=== PATIENT | female | born 1980 | race Caucasian/White ===

== ENCOUNTER 2017-04-05 07:36 | Emergency (ER) | payer OTHER ==
[2017-04-05 08:23] LABS: BASOPHIL 0.4 % (0-2); BILIRUBIN NEGATIVE (NEGATIVE); BLOOD NEGATIVE Ery/uL (NEGATIVE); CLARITY CLEAR (CLEAR); COLOR YELLOW (YELLOW); EOSINOPHIL 1.5 % (0-5); GLUCOSE (U) NORMAL (NORMAL); HCT 43.2 % (37.0-47.0); HGB 15.4 g/dl (12.5-16.0); KETONE (U) 1+ (SMALL) mg/dL (NEGATIVE); LEUKOCYTES NEGATIVE Leu/uL (NEGATIVE); LYMPHOCYTE 15.9 % (15-48); MCH 29.1 pg (25.0-31.0); MCHC 35.6 g/dL (32.0-36.0); MCV 81.7 fL (78.0-100.0); MONOCYTE 4.4 % (0-12); MPV 9.3 fL (6.0-9.5); NEUTROPHIL 77.8 % (41-80); NITRITE NEGATIVE (NEGATIVE); PLT 365 K/uL (150-400); PROTEIN NEGATIVE (NEGATIVE); RBC 5.29 M/uL (4.20-5.40); RDW 13.6 % (11.5-14.0); SPECIFIC GRAVITY >=1.030 (1.001-1.030); UROBILINOGEN 0.2 mg/dL (0.2-1.0); WBC 12.6 K/uL (4.0-10.5); pH 5.5 (5.0-9.0)
[2017-04-05 08:44] LABS: ALBUMIN 4.6 g/dL (3.5-5.0); BILIRUBIN - TOTAL 0.4 mg/dL (0.1-1.0); CREATININE 0.5 mg/dL (0.5-1.0); GLOBULIN (CALCULATION) 3.2 g/dL (2.2-4.2); POTASSIUM 3.8 mmol/L (3.5-5.1); TOTAL PROTEIN 7.8 g/dL (6.4-8.3)
== END 2017-04-05 10:38 | disposition home or self-care (01) ==
LOC: FER 07:36
PROVIDERS: Internal Medicine
DX: A08.4 Viral intestinal infection, unspecified (principal); E11.9 Type 2 diabetes mellitus without complications; Z79.84 Long term (current) use of oral hypoglycemic drugs; Z79.4 Long term (current) use of insulin; Z79.899 Other long term (current) drug therapy
CPT/HCPCS: 36415; 74022; 80053; 81003; 83690; 85025; 87339; J1170; J2405

== ENCOUNTER 2020-12-18 17:54 | Inpatient (IN) | payer OTHER ==
[~2020-12-18 17:54] MED LIST: ASPIRIN CHEWABL81 MG PO; ATORVASTATIN CA80 MG PO; BASAGLAR K100 UNIT/1 SC; BRILINTA60 MG PO; COREG 3.125M3.125 MG PO; DESYREL50 MG PO; DILTIAZEM ER180 M1 PO; EFFIENT10 MG PO; FLUOXETINE HCL20 MG PO; GABAPENTIN600 MG PO; HYDROXYZINE HCL50 MG PO; IMDUR 30MG TABL30 MG PO; ISOSORBIDE MONO60 MG PO; JANUMET XR 50-1 EACH PO; LAMOTRIGINE150 MG PO; MIDODRINE HCL10 MG PO; NITROQUIK SL0.4 MG SL; PERCOCET 5-3251 EACH PO; PLAVIX75 MG PO; PRASUGREL HCL10 MG PO; PRILOSEC20 MG PO; PROTONIX 40MG T40 MG PO; TIZANIDINE HCL2 M1 PO; VENTOLIN HFA IN18 GM INH; VITAMIN D32000 UNI2 PO; ZOFRAN4 MG PO
[2020-12-18 19:08] LABS: BASOPHIL 0.9 % (0-2); EOSINOPHIL 2.3 % (0-5); HCT 38.9 % (37.0-47.0); HGB 13.5 g/dl (12.5-16.0); LYMPHOCYTE 32.3 % (15-48); MCH 28.7 pg (25.0-31.0); MCHC 34.7 g/dL (32.0-36.0); MCV 82.8 fL (78.0-100.0); MONOCYTE 5.6 % (0-12); MPV 9.7 fL (6.0-9.5); NEUTROPHIL 58.6 % (41-80); NRBC 0; PLT 344 K/uL (150-400); RDW 12.1 % (11.5-14.0); WBC 11.5 K/uL (4.0-10.5)
[2020-12-18 19:19] LABS: ALBUMIN 3.4 g/dL (3.4-5.0); BILIRUBIN - TOTAL 0.4 mg/dL (0.2-1.0); BUN/CREAT RATIO (CALC) 20.3 RATIO; CREATININE 0.64 mg/dL (0.51-0.95); GLOBULIN (CALCULATION) 3.4 g/dL; POTASSIUM 3.5 mmol/L (3.5-5.1); TOTAL PROTEIN 6.8 g/dL (6.4-8.2)
[2020-12-18 19:27] LABS: INR 1.01 (0.9-1.2); PROTHROMBIN TIME 12.6 SECONDS (11.4-13.6); PTT 26.1 SECONDS (22.2-34.7)
[2020-12-19 02:22] LABS: CORONAVIRUS 2019 SARS-COV-2 NEGATIVE (NEGATIVE); INFLUENZA A NAA NEGATIVE (NEGATIVE)
[2020-12-19] MEDS ORDERED: BRILINTA60 MG PO (02:46)
[2020-12-19] MEDS ORDERED: CARDIZEM CD120 MG PO (02:47)
[2020-12-19] MEDS ORDERED: LIPITOR40 MG PO (02:48)
[2020-12-19] MEDS ORDERED: COREG 3.125M3.125 MG PO (02:48)
[2020-12-19] MEDS ORDERED: ISOSORBIDE MONO60 MG PO (02:49)
[2020-12-19] MEDS ORDERED: FLUOXETINE HCL PO (02:50)
[2020-12-19] MEDS ORDERED: ATARAX25 MG PO (02:50)
[2020-12-19] MEDS ORDERED: NITROQUIK SL0.4 MG SL (02:50)
[2020-12-19] MEDS ORDERED: TRAZODONE 100M100 MG PO (02:51)
[2020-12-19] MEDS ORDERED: CLONAZEPAM0.5 MG PO (02:51)
[2020-12-19] MEDS ORDERED: HYDROCODON-ACE1 EAC1 PO (02:52)
[2020-12-19] MEDS ORDERED: GABAPENTIN600 MG PO (02:52)
[2020-12-19] MEDS ORDERED: VITAMIN D350 MC4 PO (02:53)
[2020-12-19] MEDS ORDERED: TIZANIDINE HCL4 M1 PO (02:54)
[2020-12-19] MEDS ORDERED: JANUMET XR 50-1 EACH PO (02:54)
[2020-12-19] MEDS ORDERED: COQ1050 MG PO (02:55)
[2020-12-19] MEDS ORDERED: BASAGLAR K100 UNIT/1 IJ (02:55)
[2020-12-19 04:17] LABS: INR 1.04 (0.9-1.2); PROTHROMBIN TIME 12.9 SECONDS (11.4-13.6)
[2020-12-19 04:32] LABS: ALBUMIN 3.5 g/dL (3.4-5.0); BILIRUBIN - TOTAL 0.4 mg/dL (0.2-1.0); BUN/CREAT RATIO (CALC) 22.8 RATIO; CREATININE 0.57 mg/dL (0.51-0.95); GLOBULIN (CALCULATION) 3.6 g/dL; PHOSPHORUS 4.1 mg/dL (2.6-4.7); POTASSIUM 3.3 mmol/L (3.5-5.1); TOTAL PROTEIN 7.1 g/dL (6.4-8.2)
--- NOTE | 2020-12-19 04:56 | NUR ---
HEPATOLOGIST DR SUMMERS NOTIFIED OF PT INCREASED TROPONIN, STATED SHE WILL ORDER A ONE TIME DOSE OF LOVENOX UNTIL THE DELIVERY MGR SEES THE PT. NO CHEST PAIN OR ANYTHING AT THIS TIME. WILL CONTINUE TO MONITOR
[2020-12-20 04:07] LABS: HCT 36.5 % (37.0-47.0); HGB 12.6 g/dl (12.5-16.0); LYMPHOCYTE 49.5 % (15-48); MCH 28.8 pg (25.0-31.0); MCHC 34.5 g/dL (32.0-36.0); MCV 83.5 fL (78.0-100.0); MONOCYTE 6.5 % (0-12); MPV 9.6 fL (6.0-9.5); NEUTROPHIL 38.7 % (41-80); NRBC 0; PLT 228 K/uL (150-400); RBC 4.37 M/uL (4.20-5.40); RDW 12.3 % (11.5-14.0); WBC 6.7 K/uL (4.0-10.5)
[2020-12-20 04:42] LABS: BUN/CREAT RATIO (CALC) 23.4 RATIO; CREATININE 0.64 mg/dL (0.51-0.95); MAGNESIUM 1.9 mg/dL (1.8-2.4); PHOSPHORUS 3.3 mg/dL (2.6-4.7)
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
--- NOTE | 2020-12-21 05:37 | NUR ---
PT HR WENT UP TO 175 AND CAME BACK DOWN, CALLED TO [employer] RECORDS CLERK AND NO NEW ORDERS WERE GIVEN. PT STATED SHE HAD NOT GOTTEN OUT OF BED BUT HAD JUST GOTTEN HER BLOOD DRAWN. NO CHEST PAIN AT THIS TIME, WILL CONTINUE TO MONITOR
[2020-12-21 06:26] LABS: EOSINOPHIL 3.4 % (0-5); HCT 36.9 % (37.0-47.0); HGB 12.5 g/dl (12.5-16.0); LYMPHOCYTE 40.4 % (15-48); MCH 28.8 pg (25.0-31.0); MCHC 33.9 g/dL (32.0-36.0); MONOCYTE 6.7 % (0-12); MPV 9.7 fL (6.0-9.5); NEUTROPHIL 47.7 % (41-80); NRBC 0; PLT 241 K/uL (150-400); RBC 4.34 M/uL (4.20-5.40); RDW 12.4 % (11.5-14.0); WBC 7.3 K/uL (4.0-10.5)
[2020-12-21 06:36] LABS: INR 1.18 (0.9-1.2); PROTHROMBIN TIME 14.2 SECONDS (11.4-13.6); PTT 24.7 SECONDS (22.2-34.7)
[2020-12-21 06:44] LABS: BUN/CREAT RATIO (CALC) 19.7 RATIO; CREATININE 0.71 mg/dL (0.51-0.95); POTASSIUM 4.4 mmol/L (3.5-5.1)
--- NOTE | 2020-12-21 07:36 | NUR ---
REPORT CALLED TO DEE DEE BOYCE [facility], PT VITAL SIGNS STABLE AT THIS TIME, ON ROOM AIR, NO CHEST PAIN OR DISCOMFORT, EMS CALLED SOON.
== END 2020-12-21 09:26 | disposition other institution (70) | DRG 282 ==
LOC: FER 17:54 → FTCU 12-19 01:59
PROVIDERS: Emergency Medicine; Emergency Medicine Emergency Medical Services; Internal Medicine; ADMIT Internal Medicine
DX: I21.4 Non-ST elevation (NSTEMI) myocardial infarction (principal); I24.9 Acute ischemic heart disease, unspecified; E11.9 Type 2 diabetes mellitus without complications; I10 Essential (primary) hypertension; F41.9 Anxiety disorder, unspecified; F31.9 Bipolar disorder, unspecified; E78.5 Hyperlipidemia, unspecified; I25.10 Atherosclerotic heart disease of native coronary artery without angina pectoris; Z20.822 Contact with and (suspected) exposure to COVID-19; Z90.49 Acquired absence of other specified parts of digestive tract; Z95.5 Presence of coronary angioplasty implant and graft; Z88.5 Allergy status to narcotic agent; Z85.9 Personal history of malignant neoplasm, unspecified; Z91.040 Latex allergy status; Z86.718 Personal history of other venous thrombosis and embolism; Z86.711 Personal history of pulmonary embolism; Z79.4 Long term (current) use of insulin; Z98.890 Other specified postprocedural states; Z87.891 Personal history of nicotine dependence
CPT/HCPCS: 36415; 70450; 71045; 80048; 80053; 80061; 82962; 83036; 83605; 83690; 83735; 84100; 84484; 85025; 85610; 85730; 93005; J1170; J1650; J1885; J2405; J2550; J3010; J3475; Q9967; U0002

== ENCOUNTER 2021-04-11 17:04 | Emergency (ER) | payer OTHER ==
[~2021-04-11 17:04] MED LIST changes: +ATARAX25 MG PO; +BASAGLAR K100 UNIT/1 IJ; +CARDIZEM CD120 MG PO; +CLONAZEPAM0.5 MG PO; +COQ1050 MG PO; +FLUOXETINE HCL PO; +HYDROCODON-ACE1 EAC1 PO; +LIPITOR40 MG PO; +TIZANIDINE HCL4 M1 PO; +TRAZODONE 100M100 MG PO; +VITAMIN D350 MC4 PO
== END 2021-04-11 20:35 | disposition home or self-care (01) ==
LOC: FER 17:04
DX: S61.012A Laceration without foreign body of left thumb without damage to nail, initial encounter (principal); I25.2 Old myocardial infarction; E11.9 Type 2 diabetes mellitus without complications; Z87.891 Personal history of nicotine dependence; Z91.040 Latex allergy status; W27.4XXA Contact with kitchen utensil, initial encounter; Y92.89 Other specified places as the place of occurrence of the external cause; Y93.G1 Activity, food preparation and clean up; Y99.0 Civilian activity done for income or pay
CPT/HCPCS: 99282

== ENCOUNTER 2021-07-16 10:17 | Emergency (ER) | payer OTHER ==
[2021-07-16 10:43] LABS: BASOPHIL 0.9 % (0-2); EOSINOPHIL 1.6 % (0-5); HCT 41.6 % (37.0-47.0); HGB 14.2 g/dl (12.5-16.0); LYMPHOCYTE 29.3 % (15-48); MCH 27.9 pg (25.0-31.0); MCHC 34.1 g/dL (32.0-36.0); MCV 81.7 fL (78.0-100.0); MONOCYTE 5.1 % (0-12); MPV 9.7 fL (6.0-9.5); NEUTROPHIL 62.6 % (41-80); NRBC 0; PLT 277 K/uL (150-400); RBC 5.09 M/uL (4.20-5.40); RDW 12.1 % (11.5-14.0); WBC 7.9 K/uL (4.0-10.5)
[2021-07-16 11:11] LABS: ALBUMIN 3.6 g/dL (3.4-5.0); BILIRUBIN - TOTAL 0.3 mg/dL (0.2-1.0); BUN/CREAT RATIO (CALC) 17.2 RATIO; CREATININE 0.64 mg/dL (0.51-0.95); GLOBULIN (CALCULATION) 3.4 g/dL; POTASSIUM 4.7 mmol/L (3.5-5.1)
== END 2021-07-16 14:15 | disposition home or self-care (01) ==
LOC: FER 10:17
PROVIDERS: Emergency Medicine
DX: R07.9 Chest pain, unspecified (principal); I25.10 Atherosclerotic heart disease of native coronary artery without angina pectoris; Z88.6 Allergy status to analgesic agent; Z91.040 Latex allergy status; Z95.5 Presence of coronary angioplasty implant and graft
CPT/HCPCS: 36415; 71045; 80053; 84484; 85025; 93005

== ENCOUNTER 2021-08-30 09:56 | Emergency (ER) | payer OTHER ==
[2021-08-30 10:39] LABS: BASOPHIL 0.6 % (0-2); EOSINOPHIL 0.7 % (0-5); HCT 38.8 % (37.0-47.0); HGB 13.3 g/dl (12.5-16.0); LYMPHOCYTE 12.4 % (15-48); MCH 27.8 pg (25.0-31.0); MCHC 34.3 g/dL (32.0-36.0); MCV 81.2 fL (78.0-100.0); MONOCYTE 4.4 % (0-12); MPV 9.6 fL (6.0-9.5); NEUTROPHIL 81.4 % (41-80); NRBC 0; PLT 276 K/uL (150-400); RBC 4.78 M/uL (4.20-5.40); RDW 12.2 % (11.5-14.0)
[2021-08-30 10:49] LABS: INR 0.96 (0.9-1.2); PROTHROMBIN TIME 12.2 SECONDS (11.8-13.4)
[2021-08-30 10:58] LABS: LACTIC ACID 2.3 mmol/L (0.4-1.9)
[2021-08-30 11:04] LABS: CKMB 0.6 ng/mL (0.0-3.6)
[2021-08-30 11:08] LABS: ALBUMIN 3.5 g/dL (3.4-5.0); BILIRUBIN - TOTAL 0.3 mg/dL (0.2-1.0); CREATININE 0.61 mg/dL (0.51-0.95); GLOBULIN (CALCULATION) 3.3 g/dL; POTASSIUM 4.2 mmol/L (3.5-5.1); TOTAL PROTEIN 6.8 g/dL (6.4-8.2)
[2021-08-30] MEDS ORDERED: PRILOSEC20 MG PO (15:15)
[2021-08-30] MEDS ORDERED: BENTYL10 MG PO (15:15)
[2021-08-31] MEDS ORDERED: PHENERGAN25 M1 PO (21:11)
== END 2021-08-30 15:39 | disposition home or self-care (01) ==
LOC: FER 09:56
PROVIDERS: Emergency Medicine
DX: R10.13 Epigastric pain (principal); E11.65 Type 2 diabetes mellitus with hyperglycemia; I10 Essential (primary) hypertension; Z88.6 Allergy status to analgesic agent; Z79.4 Long term (current) use of insulin
CPT/HCPCS: 36415; 71045; 80053; 82553; 83605; 83690; 84484; 85025; 85610; 85730; 93005; J1170; J2405; Q9967

== ENCOUNTER 2021-08-31 17:30 | Emergency (ER) | payer OTHER ==
[~2021-08-31] VITALS: Ht 165.1 cm; Wt 90.7 kg
[~2021-08-31 17:30] MED LIST changes: +BENTYL10 MG PO
[2021-08-31 19:36] LABS: BASOPHIL 0.6 % (0-2); EOSINOPHIL 0.1 % (0-5); HCT 39.7 % (37.0-47.0); HGB 13.7 g/dl (12.5-16.0); LYMPHOCYTE 16.3 % (15-48); MCH 27.8 pg (25.0-31.0); MCHC 34.5 g/dL (32.0-36.0); MCV 80.5 fL (78.0-100.0); MONOCYTE 4.3 % (0-12); MPV 9.5 fL (6.0-9.5); NEUTROPHIL 78.4 % (41-80); NRBC 0; PLT 319 K/uL (150-400); RBC 4.93 M/uL (4.20-5.40); RDW 12.3 % (11.5-14.0); WBC 10.3 K/uL (4.0-10.5)
[2021-08-31 20:00] LABS: ALBUMIN 3.8 g/dL (3.4-5.0); BILIRUBIN - TOTAL 0.6 mg/dL (0.2-1.0); BUN/CREAT RATIO (CALC) 14.3 RATIO; CREATININE 0.63 mg/dL (0.51-0.95); GLOBULIN (CALCULATION) 3.7 g/dL; TOTAL PROTEIN 7.5 g/dL (6.4-8.2)
[2021-08-31 20:09] LABS: BILIRUBIN NEGATIVE (NEGATIVE); BLOOD NEGATIVE Ery/uL (NEGATIVE); CLARITY CLEAR (CLEAR); COLOR YELLOW (YELLOW); GLUCOSE (U) 3+ mg/dL (NORMAL); LEUKOCYTES NEGATIVE Leu/uL (NEGATIVE); NITRITE NEGATIVE (NEGATIVE); PROTEIN NEGATIVE (NEGATIVE); SPECIFIC GRAVITY 1.025 (1.001-1.030); UROBILINOGEN 0.2 mg/dL (0.2-1.0)
[2021-08-31 20:12] LABS: AMPHETAMINES NEGATIVE (NEGATIVE); BARBITURATES NEGATIVE (NEGATIVE); ECSTASY (MDMA) NEGATIVE (NEGATIVE); MARIJUANA (THC) POSITIVE (NEGATIVE); METHADONE NEGATIVE (NEGATIVE); OPIATES NEGATIVE (NEGATIVE); OXYCODONE NEGATIVE (NEGATIVE)
[2021-08-31] MEDS ORDERED: PHENERGAN25 M1 PO (21:11)
== END 2021-08-31 21:36 | disposition home or self-care (01) ==
LOC: FER 17:30
PROVIDERS: Emergency Medicine
DX: R10.13 Epigastric pain (principal); E11.65 Type 2 diabetes mellitus with hyperglycemia; I25.10 Atherosclerotic heart disease of native coronary artery without angina pectoris; I10 Essential (primary) hypertension; Z88.0 Allergy status to penicillin; Z91.040 Latex allergy status
CPT/HCPCS: 36415; 80053; 80305; 81003; 82150; 83690; 84484; 85025; 93005; J7030; Q0169

== ENCOUNTER → 2021-11-02 | Day surgery (SDC) | payer OTHER ==
[~2021-11-02] VITALS: Ht 165.1 cm; Wt 95.2 kg
[~2021-11-02] MED LIST changes: +BRILINTA90 MG PO; +COLESTID 1GM TAB1 GM PO; -FLUOXETINE HCL PO; +FLUOXETINE HCL40 MG PO; +LEVEMIR FL100 UNIT/1 SC; +PHENERGAN25 M1 PO
[2021-11-02 10:35] LABS: HCT 38.8 % (37.0-47.0); HGB 13.4 g/dl (12.5-16.0); MCH 28.5 pg (25.0-31.0); MCHC 34.5 g/dL (32.0-36.0); MCV 82.4 fL (78.0-100.0); MPV 9.9 fL (6.0-9.5); RBC 4.71 M/uL (4.20-5.40); RDW 11.9 % (11.5-14.0); WBC 6.7 K/uL (4.0-10.5)
[2021-11-02 10:36] LABS: HCG (URINE) SCREEN NEGATIVE (NEGATIVE)
[2021-11-02 11:01] LABS: ALBUMIN 3.3 g/dL (3.4-5.0); BILIRUBIN - TOTAL 0.4 mg/dL (0.2-1.0); BUN/CREAT RATIO (CALC) 15.9 RATIO; CREATININE 0.63 mg/dL (0.51-0.95); GLOBULIN (CALCULATION) 3.5 g/dL; POTASSIUM 3.8 mmol/L (3.5-5.1); TOTAL PROTEIN 6.8 g/dL (6.4-8.2)
== END | disposition home or self-care (01) ==
LOC: FAS 08:31
PROVIDERS: Surgery
DX: K29.50 Unspecified chronic gastritis without bleeding (principal); K21.00 Gastro-esophageal reflux disease with esophagitis, without bleeding; I25.2 Old myocardial infarction; E11.9 Type 2 diabetes mellitus without complications; I50.9 Heart failure, unspecified; Z95.5 Presence of coronary angioplasty implant and graft; Z98.51 Tubal ligation status; Z87.891 Personal history of nicotine dependence; Z88.5 Allergy status to narcotic agent; Z91.040 Latex allergy status; Z79.82 Long term (current) use of aspirin
CPT/HCPCS: 36415; 80053; 82962; 84703; J2250; J2704; J7120

== ENCOUNTER 2022-06-01 14:51 | Emergency (ER) | payer OTHER ==
[2022-06-01 15:20] LABS: BASOPHIL 0.4 % (0-2); EOSINOPHIL 0 % (0-5); HCT 37.6 % (37.0-47.0); HGB 13.2 g/dl (12.5-16.0); LYMPHOCYTE 8.7 % (15-48); MCH 28.8 pg (25.0-31.0); MCHC 35.1 g/dL (32.0-36.0); MCV 82.1 fL (78.0-100.0); MONOCYTE 1.6 % (0-12); MPV 9.6 fL (6.0-9.5); NEUTROPHIL 88.9 % (41-80); NRBC 0; PLT 261 K/uL (150-400); RBC 4.58 M/uL (4.20-5.40); RDW 12.6 % (11.5-14.0); WBC 10.7 K/uL (4.0-10.5)
[2022-06-01 15:49] LABS: LACTIC ACID 2.2 mmol/L (0.4-1.9)
[2022-06-01 15:52] LABS: ALBUMIN 3.5 g/dL (3.4-5.0); BILIRUBIN - TOTAL 0.6 mg/dL (0.2-1.0); CREATININE 0.58 mg/dL (0.51-0.95); GLOBULIN (CALCULATION) 3.4 g/dL; TOTAL PROTEIN 6.9 g/dL (6.4-8.2)
[2022-06-01] MEDS ORDERED: ONDANSETRON ODT4 MG PO (21:36)
[2022-06-01] MEDS ORDERED: PHENERGAN25 M1 PO (21:36)
== END 2022-06-01 22:24 | disposition home or self-care (01) ==
LOC: FER 14:51
PROVIDERS: Emergency Medicine
DX: K29.70 Gastritis, unspecified, without bleeding (principal); R73.9 Hyperglycemia, unspecified; I48.91 Unspecified atrial fibrillation; Z79.82 Long term (current) use of aspirin; Z79.899 Other long term (current) drug therapy; Z20.822 Contact with and (suspected) exposure to COVID-19
CPT/HCPCS: 36415; 80053; 83605; 83690; 84484; 85025; 96372; J1200; J1630; J1885; J2405; J2550; J7030; Q9967; U0002

== ENCOUNTER → 2022-08-10 | Day surgery (SDC) | payer OTHER ==
[~2022-08-10] VITALS: Ht 165.1 cm; Wt 90.7 kg
[~2022-08-10] MED LIST changes: +ASPIRIN EC81 MG PO; +JANUMET XR 1001 EACH PO; +LEVEMIR FL100 UNIT/1 IJ; -LEVEMIR FL100 UNIT/1 SC; +LEVOTHYROXINE50 MCG PO; +OMEGA 3 FISH O1 EACH PO; +ONDANSETRON HCL4 MG PO; +ONDANSETRON ODT4 MG PO; +VITAMIN D3125 MC2 PO
[2022-08-10 11:12] LABS: HCG (URINE) SCREEN NEGATIVE (NEGATIVE)
[2022-08-10 11:43] LABS: HCT 40.3 % (37.0-47.0); MCH 29.3 pg (25.0-31.0); MCHC 34.7 g/dL (32.0-36.0); MCV 84.3 fL (78.0-100.0); MPV 9.4 fL (6.0-9.5); RBC 4.78 M/uL (4.20-5.40); RDW 12.7 % (11.5-14.0); WBC 10.3 K/uL (4.0-10.5)
[2022-08-10 12:21] LABS: ALBUMIN 3.4 g/dL (3.4-5.0); BILIRUBIN - TOTAL 0.4 mg/dL (0.2-1.0); BUN/CREAT RATIO (CALC) 12.1 RATIO; CREATININE 0.66 mg/dL (0.51-0.95); GLOBULIN (CALCULATION) 3.6 g/dL; POTASSIUM 3.8 mmol/L (3.5-5.1)
== END | disposition home or self-care (01) ==
LOC: FAS 10:50
PROVIDERS: Surgery
DX: K63.5 Polyp of colon (principal); K31.9 Disease of stomach and duodenum, unspecified; R19.4 Change in bowel habit; K21.9 Gastro-esophageal reflux disease without esophagitis; K92.0 Hematemesis; K44.9 Diaphragmatic hernia without obstruction or gangrene; E11.9 Type 2 diabetes mellitus without complications; J45.909 Unspecified asthma, uncomplicated; M19.90 Unspecified osteoarthritis, unspecified site; G47.30 Sleep apnea, unspecified; Z99.89 Dependence on other enabling machines and devices; Z79.4 Long term (current) use of insulin; Z79.82 Long term (current) use of aspirin; Z79.899 Other long term (current) drug therapy; Z88.5 Allergy status to narcotic agent; Z91.040 Latex allergy status
CPT/HCPCS: 36415; 80053; 82150; 83690; 84703; J2250; J2704; J7120

== ENCOUNTER 2022-08-14 16:24 | Inpatient (IN) | payer OTHER ==
[~2022-08-14] VITALS: Ht 165.1 cm; Wt 85.4 kg
[~2022-08-14 16:24] MED LIST changes: -OMEGA 3 FISH O1 EACH PO; -ONDANSETRON HCL4 MG PO; -VITAMIN D3125 MC2 PO
[2022-08-14 17:53] LABS: BILIRUBIN 1+ mg/dL (NEGATIVE); BLOOD NEGATIVE Ery/uL (NEGATIVE); CLARITY CLEAR (CLEAR); COLOR YELLOW (YELLOW); GLUCOSE (U) 2+ mg/dL (NORMAL); LEUKOCYTES NEGATIVE Leu/uL (NEGATIVE); NITRITE NEGATIVE (NEGATIVE); PROTEIN 1+ mg/dL (NEGATIVE); SPECIFIC GRAVITY >=1.030 (1.001-1.030); UROBILINOGEN 0.2 mg/dL (0.2-1.0)
[2022-08-14 18:00] LABS: INR 1.06 (0.9-1.2); PROTHROMBIN TIME 13.5 SECONDS (11.9-13.9)
[2022-08-14 18:01] LABS: PTT 23.2 SECONDS (24.9-34.6)
[2022-08-14 18:02] LABS: BASOPHIL 0.3 % (0-2); EOSINOPHIL 0 % (0-5); HCT 38.8 % (37.0-47.0); HGB 13.6 g/dl (12.5-16.0); LYMPHOCYTE 13.3 % (15-48); MCH 28.8 pg (25.0-31.0); MCHC 35.1 g/dL (32.0-36.0); MCV 82.2 fL (78.0-100.0); MONOCYTE 6.3 % (0-12); MPV 9.4 fL (6.0-9.5); NEUTROPHIL 79.8 % (41-80); NRBC 0; PLT 318 K/uL (150-400); RBC 4.72 M/uL (4.20-5.40); RDW 12.3 % (11.5-14.0); WBC 11.7 K/uL (4.0-10.5)
[2022-08-14 18:12] LABS: ALBUMIN 3.6 g/dL (3.4-5.0); BILIRUBIN - TOTAL 0.7 mg/dL (0.2-1.0); CREATININE 0.62 mg/dL (0.51-0.95); GLOBULIN (CALCULATION) 3.9 g/dL; POTASSIUM 3.4 mmol/L (3.5-5.1); TOTAL PROTEIN 7.5 g/dL (6.4-8.2)
[2022-08-14 18:19] LABS: BACTERIA 3+
[2022-08-14 19:35] LABS: LACTIC ACID 0.7 mmol/L (0.4-1.9)
[2022-08-14] MEDS ORDERED: BRILINTA60 MG PO (21:49)
[2022-08-14] MEDS ORDERED: VITAMIN D3125 MC2 PO (21:49)
[2022-08-14] MEDS ORDERED: OMEGA 3 FISH O1 EACH PO (21:50)
[2022-08-14] MEDS ORDERED: ASPIRIN EC81 MG PO (21:50)
--- NOTE | 2022-08-14 21:53 | NUR ---
ARRIVED TO FLOOR VIA STRECHER AOX4 NO S/S DISTRESS, BED LOCKED IN LOW POSITION CALL LIGHT IN REACH.
[2022-08-15 07:07] LABS: BUN/CREAT RATIO (CALC) 16.1 RATIO; CREATININE 0.62 mg/dL (0.51-0.95); POTASSIUM 3.2 mmol/L (3.5-5.1)
[2022-08-15 09:26] LABS: BASOPHIL 0.9 % (0-2); EOSINOPHIL 0.7 % (0-5); HGB 12.6 g/dl (12.5-16.0); LYMPHOCYTE 36.8 % (15-48); MCH 28.8 pg (25.0-31.0); MCHC 34.1 g/dL (32.0-36.0); MCV 84.5 fL (78.0-100.0); MONOCYTE 7.3 % (0-12); MPV 9.7 fL (6.0-9.5); NRBC 0; PLT 269 K/uL (150-400); RBC 4.38 M/uL (4.20-5.40); RDW 12.6 % (11.5-14.0); WBC 9.6 K/uL (4.0-10.5)
[2022-08-16 07:33] LABS: BASOPHIL 0.6 % (0-2); EOSINOPHIL 0.3 % (0-5); HCT 39.9 % (37.0-47.0); MCH 28.9 pg (25.0-31.0); MCHC 35.1 g/dL (32.0-36.0); MCV 82.4 fL (78.0-100.0); MONOCYTE 5.2 % (0-12); MPV 9.6 fL (6.0-9.5); NEUTROPHIL 81.4 % (41-80); NRBC 0; PLT 260 K/uL (150-400); RBC 4.84 M/uL (4.20-5.40); RDW 12.1 % (11.5-14.0); WBC 15.2 K/uL (4.0-10.5)
[2022-08-16 14:55] LABS: ALBUMIN 3.6 g/dL (3.4-5.0); BILIRUBIN - DIRECT 0.2 mg/dL (0.00-0.20); BILIRUBIN - TOTAL 0.7 mg/dL (0.2-1.0); GLOBULIN (CALCULATION) 3.4 g/dL
[2022-08-17 05:50] LABS: BASOPHIL 0.6 % (0-2); HCT 35.8 % (37.0-47.0); HGB 12.5 g/dl (12.5-16.0); LYMPHOCYTE 32.9 % (15-48); MCH 28.5 pg (25.0-31.0); MCHC 34.9 g/dL (32.0-36.0); MCV 81.7 fL (78.0-100.0); MONOCYTE 7.8 % (0-12); MPV 9.3 fL (6.0-9.5); NEUTROPHIL 57.3 % (41-80); NRBC 0; PLT 225 K/uL (150-400); RBC 4.38 M/uL (4.20-5.40); RDW 11.9 % (11.5-14.0); WBC 11.9 K/uL (4.0-10.5)
[2022-08-17 06:25] LABS: BUN/CREAT RATIO (CALC) 12.9 RATIO; CREATININE 0.62 mg/dL (0.51-0.95); POTASSIUM 3.2 mmol/L (3.5-5.1)
[2022-08-17] MEDS ORDERED: PROTONIX 40MG T40 MG PO (14:13)
[2022-08-17] MEDS ORDERED: ONDANSETRON HCL4 MG PO (14:19)
== END 2022-08-17 15:28 | disposition home or self-care (01) | DRG 920 ==
LOC: FER 16:24 → FTCU 20:39 → FMS 08-15 16:39
PROVIDERS: Allergy & Immunology Allergy; Hospitalist; Internal Medicine; Physician Assistant; Surgery; ADMIT Internal Medicine
DX: K91.840 Postprocedural hemorrhage of a digestive system organ or structure following a digestive system procedure (principal); K92.0 Hematemesis; N39.0 Urinary tract infection, site not specified; E11.65 Type 2 diabetes mellitus with hyperglycemia; I25.10 Atherosclerotic heart disease of native coronary artery without angina pectoris; K21.9 Gastro-esophageal reflux disease without esophagitis; E66.9 Obesity, unspecified; E78.5 Hyperlipidemia, unspecified; F31.9 Bipolar disorder, unspecified; F41.1 Generalized anxiety disorder; I10 Essential (primary) hypertension; K44.9 Diaphragmatic hernia without obstruction or gangrene; R63.4 Abnormal weight loss; I25.2 Old myocardial infarction; T45.515A Adverse effect of anticoagulants, initial encounter; Z87.891 Personal history of nicotine dependence; Z68.31 Body mass index [BMI] 31.0-31.9, adult; Z90.49 Acquired absence of other specified parts of digestive tract; Z82.49 Family history of ischemic heart disease and other diseases of the circulatory system; Z95.5 Presence of coronary angioplasty implant and graft
CPT/HCPCS: 36415; 74018; 74240; 78264; 80048; 80053; 80076; 81001; 82150; 82271; 82962; 83036; 83605; 83690; 85025; 85610; 85730; 87088; 94010; 94760; A9541; C9113; G0378; J0696; J1170; J1790; J2405; J2550; J3480; J7030; Q9967